=== PATIENT | female | born 1995 | race Two or more races ===

== ENCOUNTER 2021-01-04 14:42 | Emergency (ER) | payer MEDICAID ==
[~2021-01-04] VITALS: Ht 162.6 cm; Wt 74.0 kg
[2021-01-04 14:49] VITALS: BP 116/86
== END 2021-01-04 16:15 | disposition home or self-care (01) ==
LOC: EMS 14:44
DX: M25.512 Pain in left shoulder (principal); M25.511 Pain in right shoulder; M54.50 Low back pain, unspecified; V89.2XXA Person injured in unspecified motor-vehicle accident, traffic, initial encounter; Y93.89 Activity, other specified; Y92.89 Other specified places as the place of occurrence of the external cause; Y99.8 Other external cause status
CPT/HCPCS: 99283

== ENCOUNTER 2021-09-27 06:57 | Emergency (ER) | payer SELFPAY ==
[~2021-09-27] VITALS: Ht 154.9 cm; Wt 77.7 kg
[2021-09-27] MEDS ORDERED: NITROGLYCERIN 2% (1 GM=INCH) PACKET TP ONE (07:45)
[2021-09-27] MEDS ORDERED: CLOPIDOGREL BISULFATE 75 MG TABLET PO ONE (07:45)
[2021-09-27] MEDS ORDERED: ASPIRIN 81 MG CHEWABLE TABLET PO ONE (07:45)
[2021-09-27 11:45] VITALS: BP 119/71
== END 2021-09-27 12:28 | disposition home or self-care (01) ==
LOC: EMS 06:57
DX: R07.89 Other chest pain (principal); R06.00 Dyspnea, unspecified
CPT/HCPCS: 84484; 93005; 99285